=== PATIENT | male | born 1975 | race Caucasian/White ===

== ENCOUNTER 2024-05-25 15:41 | Emergency (ER) | payer OTHER ==
[2024-05-25] VITALS (9 sets, daily range): BP systolic 109–133; BP diastolic 50–76
[~2024-05-25] VITALS: Ht 172.7 cm; Wt 90.0 kg
[2024-05-25 18:56] LABS: BASO% 0.4 % (0-3); EOS% 2.4 % (0-8); HEMOGLOBIN 13.9 g/dl (14.0-18.0); IMMATURE GRANULOCYTES 0.9 % (0.0-5.0); LYMPH% 20.5 % (15-41); MEAN CELL VOLUME 92.3 fL CALC (80.0-100.0); MEAN CORPUSCULAR HGB 30.5 pG CALC (26.0-32.0); MEAN CORPUSCULAR HGB CONC 33.1 g/dL CAL (32.0-36.0); MONO% 8.2 % (2-13); NEUT# 6.69 thou/uL (1.82-7.42); NEUT% 67.6 % (42-76); RED BLOOD COUNT 4.55 mill/uL (4.70-6.10); RED CELL DISTRI WIDTH 12.3 % (11.5-15.5)
[2024-05-25 19:07] LABS: ALBUMIN 3.9 g/dL (3.2-5.0); BILIRUBIN, TOTAL 0.6 mg/dL (0.2-1.3); CREATININE 1.2 mg/dL (0.7-1.3); POTASSIUM 3.7 mmol/l (3.5-5.1); TOTAL PROTEIN 6.5 g/dL (6.3-8.2)
[2024-05-25] MEDS ORDERED: AMOX/K CLAV875 M1 PO (21:04)
== END 2024-05-25 21:27 | disposition home or self-care (01) | DRG 295 ==
LOC: ED 15:41
PROVIDERS: Nurse Practitioner Family
DX: I80.3 Phlebitis and thrombophlebitis of lower extremities, unspecified (principal)